=== PATIENT | female | born 1950 | race Caucasian/White ===

== ENCOUNTER → 2022-08-14 15:53 | Outpatient (CLI) | payer MEDICARE, MEDICAID, SELFPAY ==
[2022-08-14 17:10] LABS: COVID19 -Nasal RAPID Negative (Negative)
== END ==
PROVIDERS: PCP Physician Assistant; Referring Provider Orthopaedic Surgery; Visit Provider Orthopaedic Surgery
DX: Z20.822 Contact with and (suspected) exposure to COVID-19 (principal)
CPT/HCPCS: 87635; C9803

== ENCOUNTER 2022-08-16 07:36 | Inpatient (IN) | payer MEDICARE, MEDICAID, SELFPAY ==
[2022-08-07 13:54] VITALS: BMI 24.6
[2022-08-15] VITALS (11 sets, daily range): BP systolic 92–153; BP diastolic 40–80; PULSE 65–79; RESP 14–25; TEMP 36.1–37.1; O2SAT 94–99; BMI 24.6
--- NOTE | 2022-08-15 06:00 | DI.RAD.S_ITS ---
PROCEDURE: XR KNEE RT 1TO2V INDICATIONS: TKA TECHNIQUE: 2 view(s) of the knee acquired. [facility] 4+ VIEWS RIGHT, 04/17/2022, 15:41. FINDINGS: Bones: Patient is status post knee joint arthroplasty. Hardware components are in expected positions. Visualized bony structures are intact. Soft tissues: Overlying postoperative changes are noted. IMPRESSION: Status post interval right total knee arthroplasty without evidence for gross hardware complication. Dictated by: Inocencio Jeronimo M.D. on 08/16/2022 at 11:02 Approved by: Inocencio Jeronimo M.D. on 08/16/2022 at 11:03
[2022-08-15] MEDS: LACTATED RINGERS 1,000 ML 42 ML IV (13:55)
[2022-08-15] MEDS: ACETAMINOPHEN 325 MG TABLET 975 MG PO (13:56)
--- NOTE | 2022-08-15 14:25 | PM.PREOP ---
Pre-operative Note COVID-19 COVID-19 status: Negative Result date/Date tested (Pos, Neg/Pending): 08/14/22 Interval Note History & Physical reviewed/Exam performed by Physician: Yes Changes to H&P: No
--- NOTE | 2022-08-15 14:52 | SUR.OPER ---
Supine on padded OR bed. Pillow under head, arms secured on padded armboards <90 degree abduction. Safety belt across torso. Non-operative leg secured with tape over blanket over lower leg. Operative leg secured in [employer] positioner. Foam padded brace at thigh of operative leg.
[2022-08-15] MEDS: CEFAZOLIN 2 GM/100 ML PREMIX 100 ML IV ×2 (15:30→23:36)
[2022-08-15] MEDS: TRANEXAMIC ACID 1,000 MG VIAL 2000 MG INJ ×2 (15:40→16:30)
[2022-08-15] MEDS: MORPHINE 4 MG/ML INJ INJ (15:46)
[2022-08-15] MEDS: BUPIVACAINE 0.5% W/ EPI (PF) 30 ML VIAL INJ (15:46)
[2022-08-15] MEDS: BUPIVACAINE LIPOSOME 266 MG/20 ML VIAL INJ (15:47)
--- NOTE | 2022-08-15 17:00 | P.OP_ITS ---
Operative Date/Time/Diagnoses Date of procedure: 08/15/22 Time of procedure: 17:00 Pre-op diagnosis: Right knee osteoarthritis Post-op diagnosis: same Procedure & Clinicians Procedure: Right total knee replacement Same procedure as scheduled: Yes Indications: The patient has had progressively worsening right knee pain with radiographic changes consistent with arthritis. Non-operative management has failed and the patient has requested total knee replacement. The risks, benefits and alternatives to surgery were discussed with the patient prior to proceeding. Risks discussed included, but were not limited to, failure to relieve pain, stiffness, infection, nerve damage, deep venous thrombosis, pulmonary embolism, stroke, coma, heart attack, permanent paralysis and , as well as the potential need for eventual revision of the prosthetic. Surgeon: Wiley Pavon Lawn Mower Operator: Opal Bose Yes if Unassisted: No Anesthesia Type: General, Spinal and Local Operative Notes Findings: Severe tricompartmental osteoarthritis, worst on the lateral side. Residual fracture line from prior tibial plateau fracture evident in the lateral compartment although well healed. Significant osteoporosis in all bones of the knee. Closure Type: primary Specimen(s): none sent Prosthetic devices, grafts, tissues, transplants, or devices: Implants used in this procedure were manufactured by the [employer] and [employer] and included the BCS II Journey total knee replacement with a size 4 right cobalt chromium femur, a size 4 right non porous tibial base plate, a 9 mm cross-linked polyethylene tibial insert and a 35 mm oval Vanessa II patella. Applied: implant(s) Estimated Blood Loss (mL): 25 Blood products transfused: none Tourniquet time (min): 52 Procedure in detail: The patient was seen in the pre-operative area, where the patient identified the right knee as the operative site and this was marked with my initials. The patient received pre-operative antibiotics, and was taken to the operating room and placed on the operative table in the supine position. After satisfactory anesthesia, a [employer] out was performed. The right leg was encircled with a tourniquet about the proximal thigh, and the leg was prepared from the toes to the tourniquet with ChloroPrep in the usual fashion and draped through sterile drapes. The leg was elevated and exsanguinated with Eschmark bandage and the tourniquet inflated to 250 mmHg pressure. The knee was approached through an approximately 18 cm incision centered over the patella and carried into the knee through a medial parapatellar arthrotomy. The anterior osteophytes and soft tissues were removed. The rotational landmarks of Knott's line and the transepicondylar axis were marked on the femur with electrocautery, and intramedullary guide holes for the femur and tibia were created. The distal femoral cut was made in 6 degrees of valgus using the intramedullary guide at the primary cut setting. The proximal tibial cut was then made using the intramedullary guide, taking 7 mm of bone off the less involved medial side. The extension gap was checked and the rotation of the femoral component confirmed with the gap balancing system. The flexion gap appeared appropriate however we could not attain full extension so an additional 2 mm was taken from the femur. The anterior, posterior and chamfer cuts were then made. The posterior osteophytes and soft tissues were then removed. The posterior capsule was injected with part of a mixture of 60 ml 0.25% Marcaine mixed with 20 ml Exparel and 4 mg of morphine for post-operative pain control. The remainder of this mixture was injected into the capsule and subcutaneous tissues during cement curing. The tibia was prepared with the rotation set by an extra medullary guide. Trial tibial and femoral components were then placed and the intercondylar notch cut through the femoral trial. Range of motion was 0-145 degrees, with good stability throughout the range. The patella was then cut to accommodate the patellar prosthetic. There was no need for a lateral release. The trials were then removed, and the femoral hole plugged with a bone plug. The bone was prepared with pulsatile lavage, and dried with a sponge. Cement was applied and the final prosthetics placed. Excess cement was removed during and a fter cement curing. After confirming there was no extruded cement posteriorly, the final tibial insert was placed. The knee was copiously irrigated and the tourniquet deflated. Hemostasis was obtained. The capsule was closed with interrupted # 2 polyester suture. The subcutaneous layer was closed with 3-0 Vicryl, and the skin with a running 3-0 V-Lock suture and Dermabond. An Aquacel Ag dressing was applied and the patient was taken to recovery having tolerated the procedure well. The services of a skilled assistant nurse manager were necessary during this procedure to provide exposure, positioning and retraction to protect vital structures. Without the services of Ms. Zamudio the procedure could not have been completed in a timely and safe manner. Complications: none Post-operative Condition: stable Disposition: PACU Plan for aftercare: The patient will be maintained on a standard total knee replacement protocol with weight bearing as tolerated. The patient will receive aspirin and sequential compression devices for DVT prophylaxis. The patient will be discharged home when safe for the home environment.
[2022-08-15] MEDS: LACTATED RINGERS 1,000 ML 100 ML IV (18:10)
[2022-08-15] MEDS: ACETAMINOPHEN 325 MG TABLET 650 MG PO ×2 (18:23→23:36)
[2022-08-15] MEDS: OXYCODONE IR 10 MG TABLET PO ×2 (20:15→23:36)
[2022-08-15] MEDS: LORATADINE 10 MG TABLET PO (20:16)
[2022-08-15] MEDS: DOCUSATE 100 MG CAPSULE PO (20:16)
[2022-08-15] MEDS: HYDROMORPHONE 0.5 MG INJ 0.2 MG IV (21:10)
[2022-08-15] MEDS: HYDROMORPHONE 2 MG TABLET PO (22:14)
[2022-08-15] MEDS: ONDANSETRON 4 MG ODT PO (22:14)
[2022-08-16] VITALS: BP 144/69; PULSE 68; RESP 22; TEMP 36.3; O2SAT 99
[2022-08-16] MEDS: HYDROMORPHONE 0.5 MG INJ 0.2 MG IV ×3 (00:13→03:50)
[2022-08-16 04:00] VITALS: BP 146/76; PULSE 69; RESP 17; TEMP 35.9; O2SAT 96
[2022-08-16 04:50] LABS: Hematocrit 26.4 % (36-46); Hemoglobin 9.1 g/dL (12.0-16.0)
[2022-08-16] MEDS: LACTATED RINGERS 1,000 ML 100 ML IV (05:05)
[2022-08-16] MEDS: ACETAMINOPHEN 325 MG TABLET 650 MG PO ×3 (05:08→18:06)
[2022-08-16] MEDS: OXYCODONE IR 10 MG TABLET PO ×2 (05:08→20:48)
[2022-08-16] MEDS: CEFAZOLIN 2 GM/100 ML PREMIX 100 ML IV (07:08)
--- NOTE | 2022-08-16 07:40 | PM.PNPO.1 ---
Subjective Subjective Date Patient Seen: 08/16/22 Time Patient Seen: 07:40 Interval history: The patient reports poor pain control. The nurses report she has not had pain control despite oxycodone and hydromorphone. She has also been very anxious. Exam Vital Signs (past 8 hours): - 08/16/22 00:00 08/16/22 04:00 Temperature 97.3 F L 96.6 F L Pulse Rate 68 69 Respiratory Rate 22 17 Blood Pressure 144/69 H 146/76 H Pulse Oximetry 99 96 Oxygen Delivery Method Room Air Oxygen Flow Rate 0 Narrative Exam Narrative: The patient is examined while lying in her hospital bed. She is picking at her bed sheets. She is oriented to time place and condition. Right knee wound is dressed with no drainage on the bandage. Calf is soft. Light touch and motion are intact in the right lower extremity. Objective Labs Result Diagrams: 08/16/22 04:02 Labs: Laboratory Results - last 24 hr 08/16/22 04:02 Hgb 9.1 L Hct 26.4 L PFSH Medical History (Updated 08/09/22 @ 13:35 by Vangie Villarreal RN) Bilateral cataracts Chronic systolic heart failure Depression History of cardioversion (06/09/19) HTN (hypertension) Junctional rhythm Junctional tachycardia Moderate tricuspid regurgitation Osteoarthritis Paroxysmal A-fib (2018) PFO (patent foramen ovale) Rheumatoid arthritis Seasonal allergies Severe mitral regurgitation Tibial plateau fracture, right (06/2020) Tinnitus Surgical History (Updated 08/09/22 @ 13:15 by Vangie Villarreal RN) History of cardiac cath (07/03/19) History of surgical procedure (08/05/19) Hx of arthroscopy of right knee Hx of section Hx of sinus surgery Social History household members: none Smoking Status: Former smoker alcohol intake: current Assessment & Plan Post-op Postoperative Procedures: Procedures Operation Date: 08/15/22 15:00 Actual Procedure Side Surgeon p Total Knee Arthroplasty Right Wiley Pavon MD Postoperative day: 1 Postoperative status: marginal pain control, anemia and other (Anxiety) Postoperative status narrative: The patient is medically stable with a moderate post hemorrhagic anemia postop day 1 status post right total knee replacement. She has poor pain control and a high anxiety level. She has not been able to ambulate yet. Postoperative plan: routine post-op care, ambulate and other (Add higher dose hydromorphone and Ativan to pain regimen.) Postoperative plan narrative: We will admit her to the hospital as an inpatient as she is clearly not going to be capable of going home today. We will have her work with physical therapy. I will give her as needed Ativan for anxiety. We will give her a higher dose IV hydromorphone for pain control as a rescue medication. We will discharge her after she is made enough progress with therapy to be safe to go home. If she has not made enough progress in 3 days she will need to be transferred to retirement. Time Spent With Patient Time with patient: less than 15 minutes
[2022-08-16] MEDS: HYDROMORPHONE 0.5 MG INJ IV ×3 (08:22→20:54)
[2022-08-16 08:25] VITALS: BP 136/97
[2022-08-16] MEDS: buPROPion SR 150 MG TAB 450 MG PO (08:25)
[2022-08-16] MEDS: CITALOPRAM 10 MG TABLET 40 MG PO (08:25)
[2022-08-16] MEDS: LORazepam 0.5 MG TABLET PO ×2 (08:25→20:48)
[2022-08-16] MEDS: LOSARTAN 25 MG TABLET PO (08:25)
[2022-08-16 08:26] VITALS: BP 136/67
[2022-08-16] MEDS: DOCUSATE 100 MG CAPSULE PO ×2 (08:26→20:48)
[2022-08-16] MEDS: carvediloL 12.5 MG TABLET PO (08:26)
[2022-08-16] MEDS: AMIODARONE 200 MG TABLET 100 MG PO (08:26)
[2022-08-16] MEDS: APIXABAN 5 MG TABLET PO ×2 (08:26→20:48)
[2022-08-16] MEDS: ASPIRIN EC 81 MG TABLET PO (08:26)
[2022-08-16 08:33] VITALS: BP 136/67; PULSE 68; RESP 18; TEMP 35.7; O2SAT 94
--- NOTE | 2022-08-16 10:35 | PT.IIE ---
Current Diagnoses Unilateral primary osteoarthritis, right knee (08/15/22) Surgery Performed Operation Date: 08/15/22 15:00 Actual Procedures p Total Knee Arthroplasty(Right) - Wiley Pavon MD Surgical History (Last Updated 08/09/22 @ 13:15 by Vangie Villarreal, RN) History of cardiac cath (07/03/19) History of surgical procedure (08/05/19) Hx of arthroscopy of right knee Hx of section Hx of sinus surgery Medical History (Last Updated 08/09/22 @ 13:35 by Vangie Villarreal RN) Bilateral cataracts Chronic systolic heart failure Depression History of cardioversion (06/09/19) HTN (hypertension) Junctional rhythm Junctional tachycardia Moderate tricuspid regurgitation Osteoarthritis Paroxysmal A-fib (2018) PFO (patent foramen ovale) Rheumatoid arthritis Seasonal allergies Severe mitral regurgitation Tibial plateau fracture, right (06/2020) Tinnitus Physical Therapy Inpatient Evaluation/Re-Eval M1 PT/OT-IP Prior Functional Status Start: 08/16/22 13:21 Freq: NEEDED Status: Active Protocol: Document 08/16/22 10:35 AB (Rec: 08/16/22 13:35 AB [email or web address]) Medical Review Prior Functional Status Medical History Reviewed Yes Communication able to answer question but with confusion and staggered speech Mobility and Gait pt stated that she is independent with all mobilities and ambulation without AD indoors but occasionally uses a SPC; uses a 4WW for outdoor mobility Social History Household Members none Living Arrangements Apartment/Condo Number of Floors (Floors) One Floor Number of Stairs To Enter/Railing? elevated to get to her 2nd level apartment Home Environment Standard Height Toilet,Tub/ Shower Home Equipment Front Wheel Walker,Four Wheel Walker,Straight Cane,Shower Seat with Backrest,Hand Held Shower,Grab Bars Near Toilet, Grab Bars In Shower M2 PT-IP Current Condition Start: 08/16/22 13:21 Freq: NEEDED Status: Active Protocol: Document 08/16/22 10:35 AB (Rec: 08/16/22 13:35 AB [email or web address]) Physical Therapy Current Condition Current Condition Evaluation Date 08/16/22 Treatment Diagnosis s/p R TKA; difficulty in walking Onset Date 08/15/22 M3 PT-IP Subjective Start: 08/16/22 13:21 Freq: NEEDED Status: Active Protocol: Document 08/16/22 10:35 AB (Rec: 08/16/22 13:35 AB [email or web address]) Subjective Physical Therapy Visit Type Type Initial Evaluation Visit Start Time 10:35 Visit Stop Time 11:20 Total Visit Minutes 45 Number of LOADING MACHINE OPERATOR Visits 0 Physical Therapy Visit Comments Patient Comments agreeable to do PT Therapy Pain Assessment Pain When Pain Assessed At Rest Pain Present Pain Present Pain Reported Location Right Knee Intensity 7 Scale Used Numeric (0 - 10) Pain Management Techniques Apply Cold,Elevation, Modification of Treatment,Re- positioning,Timing of Activity with Medications M4 PT-IP Mobility and Gait Start: 08/16/22 13:21 Freq: NEEDED Status: Active Protocol: Document 08/16/22 10:35 AB (Rec: 08/16/22 13:35 AB [email or web address]) PT-Bed Mobility Assessment Supine to Sit Supine to Sit Maximum Assistance PT-Transfer Assessment Sit to and From Stand Sit to and from Stand Maximum Assistance,2 Person Assistance,Use of Upper Extremities Equipment Transfer Assistive Device Gait Belt,Front Wheeled Walker Orthotic/Prosthetic Devices or Brace: No Transfers Transfer Destination Chair Transfer Technique Stand Step Pivot Transfer Ability Level of Assist Maximum Assistance,2 Person Assistance,Use of Upper Extremities Comments Mobility Comments c/o increase R knee pain. AAROM completed on R knee prior to mobility. BP: 116/78 . completed supine to sit max A and max cues. able to sit on EOB CGA. completed sit to stand max A x 2 and max cues. pt with increase R knee flexion and tends not to put weight on RLE. cued for WBAT and to have foot flat on floor during standing. completed step transfer to chair max A x 2 and max cues. c/o increase knee pain and unable to do further activity. agreed to sit on the chair. c/o lightheadedness. BP: 106/68. positioned on the chair. call light and table placed within reach. Gait Assessment Comments Gait Comments unable at this time PT-Balance Assessment Sitting Balance and Reactions Static Sitting Balance Ability Good Dynamic Sitting Balance Ability Fair Standing Balance and Reactions Static Standing Balance Ability Poor Dynamic Standing Balance Ability Poor Device Used FWW M5 PT-IP Objective Assessments Start: 08/16/22 13:21 Freq: NEEDED Status: Active Protocol: Document 08/16/22 10:35 AB (Rec: 08/16/22 13:35 AB [email or web address]) Orientation Orientation/Cognition Level of Alertness Confusional State Orientation Name Language Function Ability Hard of Hearing Safety Awareness Decreased Safety Awareness Memory Description Short Term Impaired Gross Range of Motion Lower Extremity ROM Assessment Right Impaired Impairments R knee flexion: ~ 70 de R knee extnesion: ~ 30 deg less to 0 Strength Lower Extremity Strength Assessment Right Impaired Hip 3+/5 Knee 3-/5 Sensation Assessment Sensation Gross Sensation WNL Muscle Tone Muscle Tone WNL Yes M6 PT-IP Treatment Start: 08/16/22 13:21 Freq: NEEDED Status: Active Protocol: Document 08/16/22 10:35 AB (Rec: 08/16/22 13:35 AB [email or web address]) Physical Therapy Treatment Exercises Exercises Heel Slides Education Education Provided Precautions,Weight Bearing Status,Post-Op Packet,Safety M7 PT-IP Assessment and Plan Start: 08/16/22 13:21 Freq: NEEDED Status: Active Protocol: Document 08/16/22 10:35 AB (Rec: 08/16/22 13:35 AB [email or web address]) PT Summary Assessment and Plan Potential Rehabilitation Potential Fair Status of Condition at Evaluation Evolving Summary Impairments Pain,ROM,Strength,Balance, Coordination,Sensation,Tone, Cognition,Bed Mobility, Transfers,Gait,Activity Tolerance Assessment Summary pt requiring max A x 2 for transfers using FWW and unable to ambulate at this time. Pt with c/o increase pain on R knee. Pt will need 24/7 assist at this time and will require SNF rehab to improve strength and mobility. Goals Bed Mobility Goal Minimal Assistance Transfer Goal Minimal Assistance,Front Wheeled Walker Gait Goal Minimal Assistance,Front Wheel Walker Gait Distance 25 Other Goals improve bed mobility, transfers, ambulation 100 ft SBA using FWW Days to Meet Goals 10 Frequency of Treatment Frequency Of Treatment Twice a Day Treatment Plan Physical Therapy Treatment Plan Bed Mobility Training,Transfer Training,Gait Training, Therapeutic Exercise,Balance Retraining,Post Op Education, Discharge Planning,Hot or Cold Pack,Neuromuscular Re-ed, Coordination Retraining,Manual Therapy Weight Bearing Status Weight Bearing Status Weight Bear as Tolerated Allowed Weight Bearing Amount (enter % RLE WBAT or #) (%) Recommendations To Nursing Amount of Assist Needed 2 Person Assist Discharge Recommendations PT Discharge Recommendations SNF Rehab Transportation Needs at Discharge Wheelchair/Cabulance
[2022-08-16] MEDS: HYDROMORPHONE 2 MG TABLET PO ×2 (11:23→18:05)
--- NOTE | 2022-08-16 13:57 | CM.DANOTE ---
Addendum entered by TARUN Fritz 08/16/22 15:06: ADD: Per UR RN, able to switch pt to Inpt Status as of today 08/16. Call from [facility] admissions stating they can accept pt when ready for d/c likely. [facility] still reviewing. BF Original Note: Patient is a 72 yo female who was admitted on 08/15/22 for RTKA. Pt has [facility] and [facility] for insurance and her PCP is Catrachita Barahona. EMR was reviewed. Per Ortho, pt having significant pain management issues and not stable for d/c yet and recommending SNF and placed Inpt Order due to pain and dilaudid needs. TRAVIS inquired with UR RN if pt might meet criteria for change to Inpt Status and UR will review. PT, recommending SNF as pt 2PA due to pain and guarding of her knee. OT ordered and pending. SW met bedside with pt and Dtr/DPOA Mikala and they confirm pt lives alone in an apt in [facility] and is independent at baseline and sometimes uses a cane for ambulation. Pt drives but does not like to drive long distances. Pt used to live with Dttere Mikala in [place] and had a fall a couple years ago and broke her leg in 3 places and needed surgery and discharged to SNF [facility] in [place] and then went home with Kellie POMPA. Pt since then has moved into her own apt in [facility] and both in agreement that SNF needed at d/c. TRAVIS discussed the barriers of SDC/OBS status for a planned knee surgery and attempts to see if pt will meet Inpt criteria under Medicare guidelines. TRAVIS dicussed the typical Medicare requirement of 3 midnights as Inpt Status for coverage of SNF but potential for COVID waiver if SNF facilities are still accepting. TRAVIS provided the SNF CHoice list via Ipad and printed copy and preference is any SNF ([facility] or [facility]) that could accept. TRAVIS called Tracey with new referral and Left msg with [facility] and JAQUAN Shah kindly faxed referral to [facility], [facility] for review. PASRR completed. Plan: TRAVIS to follow closely with above SNFs in the morning to determine if any can accept and with UR RN to determine OBS vs Inpt Status towards determining coverage for SNF. TARUN Fritz Discharge Planning/Care Management Advanced directive, confirm from FAMILY Start: 08/15/22 18:20 Freq: Q24H Status: Active Protocol: Document 08/15/22 18:20 CM (Rec: 08/15/22 18:20 CM [id number]) Advance Directive, confirm on record Time 18:20 Person contacted Pt Copy received No CM Discharge Assessment Start: 08/16/22 13:54 Freq: Status: Active Protocol: Document 08/16/22 13:55 BF (Rec: 08/16/22 13:57 BF [id number]) Discharge Planning Assessment Assigned Hobber TARUN Joel DPOA/Assigned Designee Name Dtr Mikala Contact Information [phone] Advance Directives? Yes Advance Directives on File No History Provided By Patient,Family Member,Medical Record Has Patient been admitted in last 30 No days? Prior Living Arrangements Apartment/Condo Household Members none Type of transporation used prior to Drives own vehicle admit Independent with ADL's Yes Is patient alert and oriented? Yes Needs Assistance With Home Chores / Shopping Caregiver for Another No DME Already Rented / Owned FWW / Walker,Cane Patient/Family Preference Assisted Facility Barriers to Discharge Yes Comment Might be OBS status Discharge Plan Assisted Facility Transportation Arrangement Dtr if home, facility van if SNF Referrals Initiated Assisted If patient plan is SNF: Has PASSR been Yes completed? Medicare Choice List Provided Yes SNF/HH Preference Any that can accept or take COVID waiver if pt can't be switched to Inpt Status Has Agency SNF been contacted Yes Whiteboard Updated in Patient Room with Yes name and ext. # of Hobber Review Status In Process Please Provide Date Initial DC 08/16/22 Assessment Was Performed Next Review Type Continued Stay Review Pre-Anesthesia Assessment Start: 08/07/22 13:54 Freq: Status: Active Protocol: Document 08/07/22 13:54 CAB (Rec: 08/07/22 14:22 CAB [id number]) Pre-Anesthesia Assessment Patient Information Reviewed Via Phone Assessment Assessment Completed With Patient Comment Labs-needs to do, older outside ECG scanned, COVID screen-needs to schedule Primary Care Provider Taina Barahona Seen Specialist in Last 12 Months Yes Specialist Seen Preparation Operator,Orthopedist Primary Language Pashto Towel Hemmer Required No Height 165.1 cm Weight 67.132 kg Body Mass Index (BMI) 24.6 Hearing Ability Normal Visual Assist Magnifying Glass Dentition Type Teeth, Natural Present Barriers to Learning Memory Comment Short term memory issues Hx Anesthesia Reactions No Hx Family Anesthesia Reaction No Hx Malignant Hyperthermia No Hx Blood Transfusions No Anesthesia Review Requested No alcohol intake current alcohol intake frequency a few times a week Smoking Status Former smoker how long ago did patient quit smoking Quit 47 years ago Substance Use Type does not use Pain Present Pain Reported Musculoskeletal Symptoms Abnormal Gait,Difficulty Walking,Joint Pain History of Falling (Recent or History of No ) Patient is completely paralyzed or No completely immobile Prosthesis or Orthotic Device Cane,Front Wheel Walker Mental Status Oriented to own ability Is patient on oxygen? No Does patient have MIRANDA/SOB Yes: MIRANDA Hx Sleep Apnea No Currently Taking a Beta Wili Yes: Cardvedilol Can You Climb a Flight of Stairs Without No SOB Hx Chest Pain No Hx SOB Yes: MIRANDA Hx Syncope or Dizziness No Anti-Coagulant Therapy Yes: Eliquis-stop [address] Roth Has a Preparation Operator Yes: Last visit 08/02/[address] Justice Cardiac Testing No Hx Pacemaker/ICD No Pacemaker Rep Required? No Cardiac Clearance Received Yes Comment Cardiac records scanned Diet Type At Home Regular Dysphagia No Gastrointestinal Symptoms Constipation Bladder Pattern Urgency Urinary Catheter Present No Hx Urinary Self Catheterization No Diabetes No Patient No Lactating No Hx Drug Resistant Organism No Presence of External or Internal Medical Yes: Mitraclip(cardiac) Devices Have you had any close contact with No someone diagnosed with COVID-19? Received a COVID vaccine? Yes Received all doses? No Marital Status Lives With none Current Living Arrangements Apartment/[place] [employer] Support System Child/Children Does the Patient Have Assistance After No: Pt has no available help Surgery at home until mid august, daughter out of town Patient Discharge Plan Description Assisted Facility/Rehab Comment Advised pt to review discharge options with surgeon's office due to no help Feels Safe in Current Environment Yes Been Physically Hurt or Threatened By a No Person in Current Environment Do you have thoughts of harming yourself None or others? Are you currently considering suicide? No Do you have a plan to hurt yourself or No Plan others? Do You Have Any Spiritual Beliefs That No May Affect Your HC Choices? Do You Have Any Cultural Practices That No May Affect Your HC Choices? Comment Jimmy Who Can We Speak to About Patient's Care Family,friends Identifying Code for Release of Patient Declines to issue Information Health Care Proxy/Next of Kin Mikala (daughter) Health Care Proxy Emergency Contact Name Mikala (daughter) Emergency Contact Advance Directives? Yes: Still working on Power of Inspecting Machine Adjuster No PAC Instructions Do not shave/clip surgical site,Durable medical equipment ,Medications to take/avoid, Nasal antibiotic,No ETOH/ petroleum product on skin DOS, NPO,Pre-surgical wash,Sensory aids,Sturdy shoes/comfortable clothes,Do not bring valuables and remove jewelry
--- NOTE | 2022-08-16 16:51 | PT.IPTN ---
Current Diagnoses Unilateral primary osteoarthritis, right knee (08/15/22) Surgery Performed Operation Date: 08/15/22 15:00 Actual Procedures p Total Knee Arthroplasty(Right) - Wiley Pavon MD Physical Therapy Treatment Note M2 PT-IP Current Condition Start: 08/16/22 13:21 Freq: NEEDED Status: Active Protocol: Document 08/16/22 10:35 AB (Rec: 08/16/22 13:35 AB [id number]) Physical Therapy Current Condition Current Condition Evaluation Date 08/16/22 Treatment Diagnosis s/p R TKA; difficulty in walking Onset Date 08/15/22 M3 PT-IP Subjective Start: 08/16/22 13:21 Freq: NEEDED Status: Active Protocol: Document 08/16/22 16:40 SAK (Rec: 08/16/22 16:51 SAK [id number]) Subjective Physical Therapy Visit Type Type Treatment Note Visit Start Time 16:00 Visit Stop Time 16:40 Total Visit Minutes 40 Number of BUSINESS INTEGRATION MANAGER Visits 0 Physical Therapy Visit Comments Patient Comments Patient reporting pain 7/10 but willing to try with PT Therapy Pain Assessment Location Right Knee Intensity 7 Scale Used Numeric (0 - 10) Description Aching,Tender,With Movement Pain Management Techniques Apply Cold,Elevation, Modification of Treatment,Re- positioning,Timing of Activity with Medications M4 PT-IP Mobility and Gait Start: 08/16/22 13:21 Freq: NEEDED Status: Active Protocol: Document 08/16/22 16:40 SAK (Rec: 08/16/22 16:51 SAK [id number]) PT-Bed Mobility Assessment Supine to Sit Supine to Sit Moderate Assistance PT-Transfer Assessment Sit to and From Stand Sit to and from Stand Maximum Assistance,1 Person Assistance,Use of Upper Extremities Equipment Transfer Assistive Device Gait Belt,Front Wheeled Walker Orthotic/Prosthetic Devices or Brace: No Transfers Transfer Destination Chair Transfer Technique Stand Step Pivot Transfer Ability Level of Assist Maximum Assistance,1 Person Assistance,Use of Upper Extremities Comments Mobility Comments Patient able to put right foot flat on floor for transfer, responded well to cues to push through arms when lifting left foot for step. Gait Assessment Gait Gait Assistance Required: Maximum Assistance Distance (Feet) 2 Able to Maintain Weight Bearing Status Yes During Gait Assistive Devices Assistive Device Front Wheeled Walker Gait Deviations General Gait Pattern Festinating Factors Limiting Gait Function Factors Limiting Gait Function Decreased Activity Tolerance, Decreased Strength, Incoordination,Pain,Poor Safety Awareness PT-Balance Assessment Sitting Balance and Reactions Static Sitting Balance Ability Good Dynamic Sitting Balance Ability Fair Standing Balance and Reactions Static Standing Balance Ability Poor Dynamic Standing Balance Ability Poor Device Used FWW Comments Other Balance Tests/Deviations/Treatment patient had tendency to lose : balance backward, anxious with standing, gait, and transfers M5 PT-IP Objective Assessments Start: 08/16/22 13:21 Freq: NEEDED Status: Active Protocol: Document 08/16/22 16:40 [facility] (Rec: 08/16/22 16:51 [facility] [id number]) Gross Range of Motion Lower Extremity ROM Assessment Right Impaired Impairments R knee flexion: ~ 80 de R knee extnesion: ~ 30 deg less to 0 M6 PT-IP Treatment Start: 08/16/22 13:21 Freq: NEEDED Status: Active Protocol: Document 08/16/22 16:40 [facility] (Rec: 08/16/22 16:51 [facility] [id number]) Physical Therapy Treatment Other Treatments Other Treatment Performed TKA protocol x 5 reps each; mod assist for SAQ, min assist SLR M7 PT-IP Assessment and Plan Start: 08/16/22 13:21 Freq: NEEDED Status: Active Protocol: Document 08/16/22 16:40 [facility] (Rec: 08/16/22 16:51 [facility] [id number]) PT Summary Assessment and Plan Potential Rehabilitation Potential Fair Status of Condition at Evaluation Evolving Summary Impairments Pain,ROM,Strength,Balance, Coordination,Sensation,Tone, Cognition,Bed Mobility, Transfers,Gait,Activity Tolerance Assessment Summary pt requiring max A x 1 for transfers using FWW and able to ambulate only 2 ft at this time. Decreased assist needed this afternoon but with tremulus movements and high anxiety level regarding mobility. Pt will need 24/7 assist at this time and will require SNF rehab to improve strength and mobility skills Goals Bed Mobility Goal Minimal Assistance Transfer Goal Minimal Assistance,Front Wheeled Walker Gait Goal Minimal Assistance,Front Wheel Walker Gait Distance 25 Other Goals improve bed mobility, transfers, ambulation 100 ft SBA using FWW Days to Meet Goals 10 Frequency of Treatment Frequency Of Treatment Twice a Day Treatment Plan Physical Therapy Treatment Plan Bed Mobility Training,Transfer Training,Gait Training, Therapeutic Exercise,Balance Retraining,Post Op Education, Discharge Planning,Hot or Cold Pack,Neuromuscular Re-ed, Coordination Retraining,Manual Therapy Weight Bearing Status Weight Bearing Status Weight Bear as Tolerated Allowed Weight Bearing Amount (enter % RLE WBAT or #) (%) Recommendations To Nursing Amount of Assist Needed 1 Person Assist,2 Person Assist Discharge Recommendations PT Discharge Recommendations SNF Rehab
[2022-08-16 20:00] VITALS: BP 123/44; PULSE 66; RESP 20; TEMP 36; O2SAT 94
[2022-08-17 04:00] VITALS: BP 144/56; PULSE 71; RESP 17; TEMP 36.7; O2SAT 94
[2022-08-17] MEDS: OXYCODONE IR 10 MG TABLET PO ×2 (04:33→11:54)
[2022-08-17] MEDS: HYDROMORPHONE 0.5 MG INJ IV ×2 (06:02→06:52)
[2022-08-17] MEDS: ACETAMINOPHEN 325 MG TABLET 650 MG PO ×2 (06:02→10:03)
--- NOTE | 2022-08-17 07:05 | P.DS_ITS ---
History of Present Illness History of Present Illness Date Patient Seen: 08/17/22 Time Patient Seen: 07:05 Chief complaint: OPB Narrative: Operative Date/Time/Diagnoses Date of procedure: 08/15/22 Time of procedure: 17:00 Pre-op diagnosis: Right knee osteoarthritis Post-op diagnosis: same Procedure & Clinicians Procedure: Right total knee replacement Same procedure as scheduled: Yes Indications: The patient has had progressively worsening right knee pain with radiographic changes consistent with arthritis. Non-operative management has failed and the patient has requested total knee replacement. The risks, benefits and alternatives to surgery were discussed with the patient prior to proceeding. Risks discussed included, but were not limited to, failure to relieve pain, stiffness, infection, nerve damage, deep venous thrombosis, pulmonary embolism, stroke, coma, heart attack, permanent paralysis and , as well as the potential need for eventual revision of the prosthetic. Surgeon: Wiley Pavon Call Center Operator: Opal Zamudio Click Yes if Unassisted: No Anesthesia Type: General, Spinal and Local Operative Notes Findings: Severe tricompartmental osteoarthritis, worst on the lateral side.? Residual fracture line from prior tibial plateau fracture evident in the lateral compartment although well healed.? Significant osteoporosis in all bones of the knee. Closure Type: primary Specimen(s): none sent Prosthetic devices, grafts, tissues, transplants, or devices: Implants used in this procedure were manufactured by the [employer] and included the BCS II Journey total knee replacement with a size 4 right cobalt chromium femur, a size 4 right non porous tibial base plate, a 9 mm cross-linked polyethylene tibial insert and a 35 mm oval Vanessa II patella. Applied: implant(s) Estimated Blood Loss (mL): 25 Blood products transfused: none Tourniquet time (min): 52 Discharge Providers Provider Date of admission: 08/16/22 07:36 Discharge Date: 08/17/22 Primary care physician: Taina Barahona PA-C Consults: 08/15/22 17:57 Consult to Discharge Planning Routine Comment: Consult to Physical Therapy Evaluate & Treat Comment: Physician Instructions: postop TKA protocol 08/16/22 13:53 Consult to Occupational Therapy Evaluate & Treat Comment: Physician Instructions: Evaluate and treat Discharge provider: Opal Zamudio PA-C Summary Hospital Course Discharge Diagnosis: Right knee osteoarthritis, s/p right total knee arthroplasty Hospital Course: Ms Hyatt's hospital course was remarkable for poor pain control and difficulty progressing with PT. She was evaluated by PT throughout her stay and felt to be best-suited for further rehabilitation at a SNF prior to going home. She was eating and voiding without difficulty. Exam Vital Signs (past 8 hours): - 08/17/22 04:00 Temperature 98.0 F Pulse Rate 71 Respiratory Rate 17 Blood Pressure 144/56 H Pulse Oximetry 94 Oxygen Delivery Method Room Air Oxygen Flow Rate 0 Narrative Exam Narrative: 4/5 strength in hip flexors, quadriceps, hamstrings; 5/5 DF, PF, EHL on right. Sensation to light touch intact throughout RLE. Calf soft, compressible, nontender and without palpable cords or masses. Objective Labs Result Diagrams: 08/16/22 04:02 [facility] Medical History (Updated 08/09/22 @ 13:35 by Vangie Villarreal RN) Bilateral cataracts Chronic systolic heart failure Depression History of cardioversion (06/09/19) HTN (hypertension) Junctional rhythm Junctional tachycardia Moderate tricuspid regurgitation Osteoarthritis Paroxysmal A-fib (2018) PFO (patent foramen ovale) Rheumatoid arthritis Seasonal allergies Severe mitral regurgitation Tibial plateau fracture, right (06/2020) Tinnitus Surgical History (Updated 08/17/22 @ 07:13 by Opal Zamudio PA-C) History of cardiac cath (07/03/19) History of surgical procedure (08/05/19) Hx of arthroscopy of right knee Hx of section Hx of sinus surgery Social History household members: none Smoking Status: Former smoker alcohol intake: current Discharge Assessment & Plan Assessment and Plan Assessment: Right knee osteoarthritis, s/p right total knee arthroplasty Acute anemia d/t expected surgical blood loss Plan of Treatment: D/c to SNF. Resume preop Eliquis and add ASA 81 mg daily for postop VTE prophylaxis. Multimodal pain control. F/u in office in 2 weeks. Discharge Plan Discharge Plan Patient Disposition: SNF Discharge orders & Medications Prescriptions: New hydromorphone 2 mg Tablet 2 mg PO Q4-6H PRN (Reason: Pain, Severe (7-10)) Qty: 20 0RF lorazepam 0.5 mg Tablet 0.5 mg PO Q6HR PRN (Reason: Anxiety) Qty: 30 0RF oxycodone 5 mg Tablet 5 mg PO Q3HR PRN (Reason: Pain, Moderate (4-6)) Qty: 60 0RF Rx Instructions: 1-2 tabs (5-10 mg) q 3 hrs PRN severe pain acetaminophen 325 mg Tablet 650 mg PO Q6HR PRN (Reason: fever or pain) Qty: 240 0RF docusate sodium 100 mg Capsule 100 mg PO BID PRN (Reason: constipation) Qty: 60 1RF Continued bupropion HCl 150 mg Tablet Sustained-Release 12 Hr 450 mg PO QAM carvedilol 12.5 mg Tablet 12.5 mg PO QAM Rx Instructions: must administer with a meal/food citalopram 40 mg Tablet 40 mg PO DAILY aspirin 81 mg Tablet,Delayed Release (Dr/Ec) 81 mg PO DAILY losartan 25 mg Tablet 25 mg PO DAILY amiodarone 100 mg Tablet 100 mg PO DAILY Zyrtec 10 mg Capsule 10 mg PO DAILY PRN (Reason: Allergies) apixaban 5 mg Tablet 5 mg PO QAM Follow up/Referrals: Taina Barahona PA-C [Primary Care Provider] - Wiley Pavon MD [Physician] - As previously scheduled (Follow up with Dr Pavon on 08/27/2022 @ 3:30 pm at [facility] in [place].) Diet/Activity/Treatments Diet: Diet as Tolerated Activity: Walk frequently! Cold/Heat Therapy: Ice to knee as needed for pain Skin/Wound/Dressing Care Report to your healthcare provider any signs of infection, such as:: chills, fever, night sweats, unusual drainage and unusual redness Dressing: May remove PRUDENCIO wrap and shower on 08/18/2022. Leave Aquacel dressing in place until follow up in office. No bathing or otherwise soaking incision. Special Rehabilitation Services Rehab type: Physical therapy and Occupational therapy Visit Report/Discharge Packet Instructions: DI for Knee Replacement, DI for Prescription Opioid Use Stand Alone Forms: Surgery Discharge Discharge Data Primary Care Provider: Taina Barahona
[2022-08-17 09:28] VITALS: BP 103/52; PULSE 62; RESP 18; O2SAT 90
[2022-08-17] MEDS: DOCUSATE 100 MG CAPSULE PO (10:03)
[2022-08-17] MEDS: buPROPion XL 150 MG TAB 450 MG PO (10:04)
[2022-08-17] MEDS: HYDROMORPHONE 2 MG TABLET PO ×2 (10:04→12:42)
[2022-08-17] MEDS: LOSARTAN 25 MG TABLET PO (10:04)
[2022-08-17] MEDS: CITALOPRAM 10 MG TABLET 40 MG PO (10:04)
[2022-08-17] MEDS: ASPIRIN EC 81 MG TABLET PO (10:05)
[2022-08-17] MEDS: APIXABAN 5 MG TABLET PO (10:05)
[2022-08-17] MEDS: carvediloL 12.5 MG TABLET PO (10:05)
[2022-08-17] MEDS: AMIODARONE 200 MG TABLET 100 MG PO (10:05)
[2022-08-17 11:15] VITALS: BP 114/54; PULSE 70; RESP 18; TEMP 36.1; O2SAT 97
--- NOTE | 2022-08-17 12:00 | PT.IPTN ---
Current Diagnoses Unilateral primary osteoarthritis, right knee (08/16/22) Presence of unspecified artificial knee joint (08/16/22) Surgery Performed Operation Date: 08/15/22 15:00 Actual Procedures p Total Knee Arthroplasty(Right) - Wiley Pavon MD Physical Therapy Treatment Note M2 PT-IP Current Condition Start: 08/16/22 13:21 Freq: NEEDED Status: Active Protocol: Document 08/16/22 10:35 AB (Rec: 08/16/22 13:35 AB [id number]) Physical Therapy Current Condition Current Condition Evaluation Date 08/16/22 Treatment Diagnosis s/p R TKA; difficulty in walking Onset Date 08/15/22 M3 PT-IP Subjective Start: 08/16/22 13:21 Freq: NEEDED Status: Active Protocol: Document 08/17/22 12:14 LR (Rec: 08/17/22 12:24 [facility] [id number]) Subjective Physical Therapy Visit Type Type Treatment Note Visit Start Time 11:00 Visit Stop Time 11:38 Total Visit Minutes 38 Number of SOLVENT RECOVERER Visits 0 Physical Therapy Visit Comments Patient Comments pt reports knee still painful Therapy Pain Assessment Pain When Pain Assessed During Mobility Pain Present Pain Present Pain Reported Location Right Knee Pain Management Techniques Apply Cold M4 PT-IP Mobility and Gait Start: 08/16/22 13:21 Freq: NEEDED Status: Active Protocol: Document 08/17/22 12:14 LR (Rec: 08/17/22 12:24 [facility] [id number]) PT-Bed Mobility Assessment Supine to Sit Supine to Sit Minimal Assistance,Head of Bed Elevated,Bedrails Scooting Scooting to Edge of Bed Minimal Assistance PT-Transfer Assessment Sit to and From Stand Sit to and from Stand Moderate Assistance,Use of Upper Extremities Equipment Transfer Assistive Device Gait Belt,Front Wheeled Walker Orthotic/Prosthetic Devices or Brace: No Transfers Transfer Destination Chair Transfer Technique Stand Step Pivot Transfer Ability Level of Assist Moderate Assistance,1 Person Assistance,Use of Upper Extremities Comments Mobility Comments supine to sit w/min A and min A to scoot to EOB. sit to stand w/mod A to FWW and pt transfered w/mod A w/FWW to chair. Unable to amb today and felt lightheaded after completed seated knee flex. BP 83/33 so reclined and leaned back. BP got up to 88/43 and O2 level 88% at highest. SOIL TECHNICIAN present in session and called RN to notify. Pt left w/call light in reach. PT-Balance Assessment Sitting Balance and Reactions Static Sitting Balance Ability Good Dynamic Sitting Balance Ability Fair Standing Balance and Reactions Static Standing Balance Ability Poor Dynamic Standing Balance Ability Poor Device Used FWW M5 PT-IP Objective Assessments Start: 08/16/22 13:21 Freq: NEEDED Status: Active Protocol: Document 08/17/22 12:14 [facility] (Rec: 08/17/22 12:24 [facility] [id number]) Gross Range of Motion Lower Extremity ROM Impairments Pt cont to lack knee ext and today probably close to 35 deg . Knee flex no greater than 80 deg sitting M6 PT-IP Treatment Start: 08/16/22 13:21 Freq: NEEDED Status: Active Protocol: Document 08/17/22 12:14 [facility] (Rec: 08/17/22 12:24 [facility] [id number]) Physical Therapy Treatment Exercises Exercises Ankle Pumps,Quad Sets,Heel Slides,Straight Leg Raises, Short Arc Quads,Passive Knee Extension Hang,Seated Knee Flexion/Extension M7 PT-IP Assessment and Plan Start: 08/16/22 13:21 Freq: NEEDED Status: Active Protocol: Document 08/17/22 12:14 [facility] (Rec: 08/17/22 12:24 [facility] [id number]) PT Summary Assessment and Plan Potential Rehabilitation Potential Fair Status of Condition at Evaluation Evolving Summary Impairments Pain,ROM,Strength,Balance, Coordination,Sensation,Tone, Cognition,Bed Mobility, Transfers,Gait,Activity Tolerance Progress Towards Goals Progressing Toward Goals Assessment Summary Pt did much better w/her mobility today and was able to do bed mobility and transfers w/less assistance today but did have low BP after activity today and RN notified by SOIL TECHNICIAN who came in at end of session to see vitals. Pt left with call light in reach and SOIL TECHNICIAN in room. Pt would benefti from rehab to improve strength. Goals Bed Mobility Goal Minimal Assistance Transfer Goal Minimal Assistance,Front Wheeled Walker Gait Goal Minimal Assistance,Front Wheel Walker Gait Distance 25 Other Goals improve bed mobility, transfers, ambulation 100 ft SBA using FWW Days to Meet Goals 10 Frequency of Treatment Frequency Of Treatment Twice a Day Treatment Plan Physical Therapy Treatment Plan Bed Mobility Training,Transfer Training,Gait Training, Therapeutic Exercise,Balance Retraining,Post Op Education, Discharge Planning,Hot or Cold Pack,Neuromuscular Re-ed, Coordination Retraining,Manual Therapy Weight Bearing Status Weight Bearing Status Weight Bear as Tolerated Allowed Weight Bearing Amount (enter % RLE WBAT or #) (%) Recommendations To Nursing Amount of Assist Needed 1 Person Assist,2 Person Assist Discharge Recommendations PT Discharge Recommendations SNF Rehab Transportation Needs at Discharge Wheelchair/Cabulance
[2022-08-17] MEDS: LORazepam 0.5 MG TABLET PO (12:28)
--- NOTE | 2022-08-17 15:19 | CM.DPNOTE ---
Addendum entered by TARUN Alvarez 08/18/22 15:49: ADD: DC held yesterday d/t patient's somnolence and disorientation, narcan administered. Hospitalist consulted yesterday per Ortho PA and chart indicates patient cleared medically and ready for DC to SNF today. Discharged to [facility] today; p/u at 1500, JANES Roe called report. Med list mostly unchanged, carvedilol adjusted. Patient and dtr aware and agreeable to plan JW Original Note: DC Note Patient has been discharged to SNF today Per patient's request- placed call to [facility] in [facility] ([place] no beds today. Placed call to [facility], no bed until tomorrow. Updated patient w/above and she is agreeable to [facility] if bed available today. [facility] accepted patient for admission today and patient agreeable. Placed call to patient's dtr Mikala per patient's request and dtr very appreciative. IMM signed and scanned in by Vangie Cox today 08.17.22 Faxed completed and signed med list and PASRR to [facility]. COVID PCR updated. RN report to be called by JANES Potter Plan: DC to [facility] today via w/c (COVID waiver) EMEKA
[2022-08-17 15:25] LABS: COVID19 -Nasal RAPID Negative (Negative)
--- NOTE | 2022-08-17 15:44 | OT.IPNOTE ---
Pt looking to discharge to SNF today , therefore defer to skilled OT for Ot goals.
[2022-08-17] MEDS: NALOXONE 0.4 MG/ML VIAL 0.2 MG IV ×3 (16:38→17:46)
[2022-08-17] MEDS: SODIUM CHLORIDE 0.9% 500 ML 1000 ML IV (17:04)
[2022-08-17 18:17] LABS: pH ABG 7.43 (7.35-7.45)
[2022-08-17 18:18] LABS: Fractionated Inspired Oxygen 36; HCO3 ABG 19 mmol/L (22-26); Oxygen Saturation ABG 99 % (95-100); PCO2 ABG 28.4 mmHg (35-45); PO2 ABG 124 mmHg (80-100); TCO2 ABG 20 mmol/L (21-31)
[2022-08-17 18:19] VITALS: O2SAT 95
--- NOTE | 2022-08-17 19:01 | P.PN_ITS ---
Subjective Subjective Interval history: 72-year-old female with history of severe mitral regurgitation status post mitral clip in 2019, moderate to severe tricuspid regurgitation history of heart failure with reduced ejection fraction (with improved ejection fraction after mitral clip), paroxysmal atrial fibrillation on carvedilol and amiodarone and anticoagulated with Eliquis, known patent foramen ovale, hypertension, and known junctional rhythm/junctional tachycardia per event monitor in 2020 as well as a history of rheumatoid arthritis who is presently hospital day 2. On postoperative day 1 from a an elective right knee replacement. Patient was set to discharge earlier today, but developed some hypotension and decreased level of alertness and her discharge was held. IV fluid bolus was ordered and an EKG was done as she was noted to become bradycardic and hypotensive. She did receive a single dose of Narcan 0.4 mg IV at approximately 4:45 p.m.. ICU nurse brought the EKG to me for review at ap proximately 5:40 p.m.. It revealed a junctional rhythm with bradycardia with a rate in the low 40s. I presented to bedside to assess the patient. She was noted to be obtunded with sonorous respirations. She was difficult to arouse. IV fluids were initially infused to a total of approximately 300 cc. Blood pressure was 74 systolic. Exam Vital Signs (past 8 hours): - 08/17/22 11:15 08/17/22 18:19 Temperature 97.0 F L Pulse Rate 70 Respiratory Rate 18 Blood Pressure 114/54 L Pulse Oximetry 97 95 Oxygen Flow Rate 2 1 Oxygen Delivery Method Room Air Oxygen Flow Rate 1 Narrative Exam Narrative: GEN: Obtunded middle-aged female, sonorous respiration HEENT:NC, Face symmetric CHEST: Respiratory excursions symmetric, coarse but clear bilaterally CV: Bradycardic with regular rhythm ABD: Soft, NT/ND, BT present in all 4 quadrants, no organomegaly or masses EXTR: warm, well perfused, no C/C/E SKIN: warm and dry, no rash NEURO: Obtunded Objective Labs Result Diagrams: 08/16/22 04:02 Labs: Laboratory Results - last 24 hr 08/17/22 08/17/22 13:37 18:06 ABG pH 7.43 ABG pCO2 28.4 L ABG pO2 124 H ABG HCO3 19 L ABG Total CO2 20 L ABG O2 Saturation 99 ABG Base Excess -6.0 L FiO2 36 SARS-CoV-2 (PCR) Negative PFSH Medical History (Updated 08/09/22 @ 13:35 by Vangie Villarreal RN) Bilateral cataracts Chronic systolic heart failure Depression History of cardioversion (06/09/19) HTN (hypertension) Junctional rhythm Junctional tachycardia Moderate tricuspid regurgitation Osteoarthritis Paroxysmal A-fib (2018) PFO (patent foramen ovale) Rheumatoid arthritis Seasonal allergies Severe mitral regurgitation Tibial plateau fracture, right (06/2020) Tinnitus Surgical History (Updated 08/17/22 @ 07:13 by Opal Zamudio PA-C) History of cardiac cath (07/03/19) History of surgical procedure (08/05/19) Hx of arthroscopy of right knee Hx of section Hx of sinus surgery Social History household members: none Smoking Status: Former smoker alcohol intake: current Assessment & Plan Assessment & Plan narrative: 1. Junctional bradycardia 2. Hypotension 3. Acute metabolic encephalopathy Patient was given an additional dose of IV Narcan 0.4 mg. Patient aroused and became quite fidgety but much more responsive. IV fluid bolus was ordered to continue wide open to a total of 1 L. blood pressure subsequently improved up to the mid 80s systolic. ABG was ordered due to daughter's report of possible underlying undiagnosed sleep apnea. There is no evidence of CO2 retention. Patient has received a total of 60 mg of oxycodone since the evening of August 15 as well as 3.3 mg of IV Dilaudid. Suspect she developed some stacking of the doses related to her older age and slower metabolism. She did respond well to Narcan. Will discontinue opiates for now. Will add scheduled Tylenol t.i.d.. Given her junctional bradycardia, will plan to hold her carvedilol this evening and place holding parameters on it as well. Time Spent With Patient Critical Care time: I spent a total of [] minutes of critical care time on this patient's care today; this time is exclusive of procedural time.
[2022-08-17 20:00] VITALS: BP 129/80; PULSE 61; RESP 19; TEMP 36.5; O2SAT 94
--- NOTE | 2022-08-17 20:07 | CM.MNRNOTE ---
Pt is A&OX3, this a.m. VSS, afebrile on RA. She is received initially resting in bed, and although asking for pain medications had drifted back to sleep. After patient is awakened for breakfast she is more alert and c/o increasing pain to 9/10 pain and higher. She reports pain medication is not controlling her pain well and is tearful. PA notified as patient not due for another prn dose of oxycodone or hydromorphone, and instructed to administer ativan prn,0.5mg po. Patient's daughter arrived and patient states that her pain is uncontrolled and not being taken seriously. RN informed daughter and patient that we will have to wait at least 30 min for medications to take effect. Shortly after patient is able to rest and takes a nap. Patient moaning intermittently but appears to have pain controlled. At 1430 patient is very somnolent and attempted to arouse for transport to [facility], upon moving patient she is unable to keep her eyes open. VSS, afebrile and RR 18 however patient intermittently snoring. PA notified and arrived to bedside. Pt is very diaphorectic and assisted back to bed. HR 40's , and administered prn Narcan. Instructed to call Ortho MD afterwards for changes in VS. MD Pavon notified for a drop in SBP to 60's this afternoon and per orders administered 500 CC NS Bolus IV. vp software and hospitalist at bedside, administered an additional 0.4mg Narcan IV, obtained EKG and ABG's. Per MD Pavon no narcotics to be given until patient is fully alert. The hospitalist notified MD Pavon of assessment, currently BP 120's/80's , HR 60's 02 96% afebrile RR 18 and patient is being monitored on telemetry.
[2022-08-17 20:31] VITALS: PULSE 61; RESP 16; O2SAT 94
[2022-08-18] VITALS: BP 147/78; PULSE 62; RESP 18; TEMP 36.3; O2SAT 98
[2022-08-18] MEDS: ACETAMINOPHEN 325 MG TABLET 975 MG PO ×2 (01:04→12:24)
[2022-08-18 04:00] VITALS: BP 126/55; PULSE 69; RESP 17; TEMP 36.7; O2SAT 99
--- NOTE | 2022-08-18 06:26 | PC.NURSE ---
Inclinometer Tester Note-Patient slept throughout the night, rouses to stimuli, but remained confused to place and date. VSS, SpO2 >94% on 2L NC, SB/SR, BBB on telemetry, few episodes of junctional rhythm noted. 2 person assist to BSC. Tylenol given for right knee pain.
[2022-08-18 08:17] VITALS: BP 115/93; PULSE 65; RESP 16; TEMP 36.6; O2SAT 98
[2022-08-18 08:45] VITALS: BP 115/93; PULSE 65
[2022-08-18] MEDS: buPROPion XL 150 MG TAB 450 MG PO (08:45)
[2022-08-18] MEDS: LOSARTAN 25 MG TABLET PO (08:45)
[2022-08-18] MEDS: DOCUSATE 100 MG CAPSULE PO (08:45)
[2022-08-18] MEDS: ASPIRIN EC 81 MG TABLET PO (08:45)
[2022-08-18] MEDS: AMIODARONE 200 MG TABLET 100 MG PO (08:46)
[2022-08-18] MEDS: CITALOPRAM 10 MG TABLET 40 MG PO (08:46)
[2022-08-18 08:47] VITALS: BP 115/93; PULSE 65
[2022-08-18] MEDS: APIXABAN 5 MG TABLET PO (08:47)
[2022-08-18] MEDS: carvediloL 12.5 MG TABLET PO (08:47)
--- NOTE | 2022-08-18 08:51 | PM.PNPO.1 ---
Subjective Subjective Date Patient Seen: 08/18/22 Time Patient Seen: 08:51 Interval history: Received a call yesterday around 1600 from pts RN stating that pt was to d/c to SNF but that pt was unarousable but w/ stable vital signs after receiving PO narcotics and lorazepam. SNF d/c was held for overnight monitoring. She was given narcan and the hospitalist service was consulted. Holding parameters were put on her carvedilol: hold for HR < 60 or SBP < 110. This morning, pt has some confusion about the day of her surgery but is easily reoriented. She remembers who I am and remembers having spoken with me. She says she feels like she's slept for 10 hours. No focal deficits. Exam Vital Signs (past 8 hours): - 08/18/22 04:00 08/18/22 08:17 08/18/22 08:45 Temperature 98.1 F 98 F Pulse Rate 69 65 65 Respiratory Rate 17 16 Blood Pressure 126/55 L 115/93 H 115/93 H Pulse Oximetry 99 98 Oxygen Flow Rate 1 1 08/18/22 08:47 Temperature Pulse Rate 65 Respiratory Rate Blood Pressure 115/93 H Pulse Oximetry Oxygen Flow Rate Fraction of Inspired Oxygen 24 SaO2/FiO2 Ratio 391 Oxygen Delivery Method Nasal Cannula Oxygen Flow Rate 1 Narrative Exam Narrative: 5/5 strength in hip flexors, quadriceps, hamstrings, DF, PF, EHL; sensation to light touch intact throughout RLE. Calf soft, compressible, nontender and without palpable cords or masses. Aquacel dressing CDI. Objective Labs Result Diagrams: 08/16/22 04:02 Labs: Laboratory Results - last 24 hr 08/17/22 08/17/22 13:37 18:06 ABG pH 7.43 ABG pCO2 28.4 L ABG pO2 124 H ABG HCO3 19 L ABG Total CO2 20 L ABG O2 Saturation 99 ABG Base Excess -6.0 L FiO2 36 SARS-CoV-2 (PCR) Negative [facility] Medical History (Updated 08/09/22 @ 13:35 by Vangie Villarreal RN) Bilateral cataracts Chronic systolic heart failure Depression History of cardioversion (06/09/19) HTN (hypertension) Junctional rhythm Junctional tachycardia Moderate tricuspid regurgitation Osteoarthritis Paroxysmal A-fib (2019) PFO (patent foramen ovale) Rheumatoid arthritis Seasonal allergies Severe mitral regurgitation Tibial plateau fracture, right (06/2020) Tinnitus Surgical History (Updated 08/17/22 @ 07:13 by Opal Zamudio PA-C) History of cardiac cath (07/03/19) History of surgical procedure (08/05/19) Hx of arthroscopy of right knee Hx of section Hx of sinus surgery Social History household members: none Smoking Status: Former smoker alcohol intake: current Assessment & Plan Post-op Assessment and plan (1) Total knee replacement status: Assessment and Plan narrative: Spoke to hospitalist who feels pt is stable for discharge to SNF today. Continue hold parameters for carvedilol on discharge: do not give if HR < 60 or SBP < 110. Continue apixaban per home dosing and ASA 81 mg PO daily for VTE prophylaxis. Minimize narcotics and benzodiazepines. F/u in office as scheduled in 2 weeks. Postoperative Procedures: Procedures Operation Date: 08/15/22 15:00 Actual Procedure Side Surgeon p Total Knee Arthroplasty Right Wiley Pavon MD Postoperative day: 3
--- NOTE | 2022-08-18 11:11 | PT.IPTN ---
Current Diagnoses Unilateral primary osteoarthritis, right knee (08/16/22) Presence of unspecified artificial knee joint (08/16/22) Surgery Performed Operation Date: 08/15/22 15:00 Actual Procedures p Total Knee Arthroplasty(Right) - Wiley Pavon MD Physical Therapy Treatment Note M2 PT-IP Current Condition Start: 08/16/22 13:21 Freq: NEEDED Status: Active Protocol: Document 08/16/22 10:35 AB (Rec: 08/16/22 13:35 AB [id number]) Physical Therapy Current Condition Current Condition Evaluation Date 08/16/22 Treatment Diagnosis s/p R TKA; difficulty in walking Onset Date 08/15/22 M3 PT-IP Subjective Start: 08/16/22 13:21 Freq: NEEDED Status: Active Protocol: Document 08/18/22 11:01 [facility] (Rec: 08/18/22 11:11 [facility] [id number]) Subjective Physical Therapy Visit Type Type Treatment Note Visit Start Time 09:45 Visit Stop Time 10:19 Total Visit Minutes 36 Number of DETECTIVE PRECINCT Visits 1 Physical Therapy Visit Comments Patient Comments pt reports knee still painful Therapy Pain Assessment Pain When Pain Assessed During Mobility Pain Present Pain Present Pain Reported Location Right Knee Pain Management Techniques Apply Cold,Elevation, Modification of Treatment,Re- positioning,Timing of Activity with Medications M4 PT-IP Mobility and Gait Start: 08/16/22 13:21 Freq: NEEDED Status: Active Protocol: Document 08/18/22 11:01 [facility] (Rec: 08/18/22 11:11 [facility] [id number]) PT-Bed Mobility Assessment Supine to Sit Supine to Sit Minimal Assistance,Head of Bed Elevated,Bedrails Scooting Scooting to Edge of Bed Minimal Assistance PT-Transfer Assessment Sit to and From Stand Sit to and from Stand Minimal Assistance,Use of Upper Extremities Equipment Transfer Assistive Device Gait Belt,Front Wheeled Walker Orthotic/Prosthetic Devices or Brace: No Comments Mobility Comments Pt lying in bed reclined.With HOB elevated pr able to swing LEs off side of bed with very minimal assist with RLE. Pt Daquan mainly with cueing to scoot to side of bed. Again, pt requiring Daquan mainly with cues to complete sit>stand. She needed assist for hand placement. Pt then sat back on edge of bed without using UEs to lower herself down and did not land softly. Therapist positioned chair next to bed and pt stood again this time properly placing her hands on the bed and FWW which was braced by therapist. Pt then asked to take small steps to chair while keeping heel of RLE on floor. Pt able to complete several shuffling steps but unable to put full wieght on RLE. Pt used arm rests to lower self onto chair with better control. Pt was moved to other side of room in the chair. Pt instructed in seated exersises then left in the room with ice packs on knee and all needs within reach. Gait Assessment Gait Gait Assistance Required: Minimum Assistance,1 Person Assist Distance (Feet) 2 Able to Maintain Weight Bearing Status Yes During Gait Assistive Devices Assistive Device Front Wheeled Walker Gait Deviations General Gait Pattern Festinating Factors Limiting Gait Function Factors Limiting Gait Function Decreased Activity Tolerance, Decreased Strength, Incoordination,Pain,Poor Safety Awareness Comments Gait Comments see mobility PT-Balance Assessment Sitting Balance and Reactions Static Sitting Balance Ability Good Dynamic Sitting Balance Ability Fair Standing Balance and Reactions Static Standing Balance Ability Poor Dynamic Standing Balance Ability Poor Device Used FWW Comments Other Balance Tests/Deviations/Treatment Pt very anxious about : experiencing pain M5 PT-IP Objective Assessments Start: 08/16/22 13:21 Freq: NEEDED Status: Active Protocol: Document 08/17/22 12:14 [facility] (Rec: 08/17/22 12:24 [facility] [id number]) Gross Range of Motion Lower Extremity ROM Impairments Pt cont to lack knee ext and today probably close to 35 deg . Knee flex no greater than 80 deg sitting M6 PT-IP Treatment Start: 08/16/22 13:21 Freq: NEEDED Status: Active Protocol: Document 08/18/22 11:01 [facility] (Rec: 08/18/22 11:11 [id number]) Physical Therapy Treatment Exercises Exercises Ankle Pumps,Quad Sets,Straight Leg Raises,Short Arc Quads, Passive Knee Extension Hang, Seated Knee Flexion/Extension Education Education Provided Weight Bearing Status,Safety M7 PT-IP Assessment and Plan Start: 08/16/22 13:21 Freq: NEEDED Status: Active Protocol: Document 08/18/22 11:01 [facility] (Rec: 08/18/22 11:11 [facility] [id number]) PT Summary Assessment and Plan Potential Rehabilitation Potential Fair Status of Condition at Evaluation Evolving Summary Impairments Pain,ROM,Strength,Balance, Coordination,Sensation,Tone, Cognition,Bed Mobility, Transfers,Gait,Activity Tolerance Progress Towards Goals Progressing Toward Goals Assessment Summary Pt requires much cueing and reassurance but moving with less need for assistance. She is unable to perform the exercises without assistance and hasa tendancy to wiggle her legs rather than activate the muscles. She is very anxious about pain however did not complain much about it during mobility. She will require SNF for improving mobility, increasing strength, and progressing gait. Goals Bed Mobility Goal Minimal Assistance Transfer Goal Minimal Assistance,Front Wheeled Walker Gait Goal Minimal Assistance,Front Wheel Walker Gait Distance 25 Other Goals improve bed mobility, transfers, ambulation 100 ft SBA using FWW Days to Meet Goals 10 Frequency of Treatment Frequency Of Treatment Twice a Day Treatment Plan Physical Therapy Treatment Plan Bed Mobility Training,Transfer Training,Gait Training, Therapeutic Exercise,Balance Retraining,Post Op Education, Discharge Planning,Hot or Cold Pack,Neuromuscular Re-ed, Coordination Retraining,Manual Therapy Weight Bearing Status Weight Bearing Status Weight Bear as Tolerated Allowed Weight Bearing Amount (enter % RLE WBAT or #) (%) Recommendations To Nursing Amount of Assist Needed 1 Person Assist Discharge Recommendations PT Discharge Recommendations SNF Rehab Transportation Needs at Discharge Wheelchair/Cabulance
[2022-08-18 12:25] VITALS: BP 130/80; PULSE 68; RESP 17; TEMP 36.6; O2SAT 98
--- NOTE | 2022-08-18 15:24 | PC.NURSE ---
Pt woke initially confused and labile, following some commands but not able to focus or understand what was going on. Through the course of thr morning Pt cleared, sats improved changed from 2 ltrs to RA. Pt up to chair with PT. taking bfast. Pt up for BSC. Also using Purewick. Pt readied for d/c to [facility] after nap. Pt readied , report given and Pt picked up by [facility] escort.
== END 2022-08-18 15:18 | DRG 469 ==
LOC: OR 17:39 → AC 17:39
PROVIDERS: Family Medicine; Physician Assistant; Admitting Provider Orthopaedic Surgery; PCP Physician Assistant; Referring Provider Orthopaedic Surgery; Visit Provider Orthopaedic Surgery
PROC: 0SRC0JZ Replacement of Right Knee Joint with Synthetic Substitute, Open Approach (ICD-10-PCS; CPT 27447; principal; 2022-08-15 15:00)
DX: M17.11 Unilateral primary osteoarthritis, right knee (principal); G93.41 Metabolic encephalopathy; G89.18 Other acute postprocedural pain; F32.A Depression, unspecified; I10 Essential (primary) hypertension; I48.91 Unspecified atrial fibrillation; F41.9 Anxiety disorder, unspecified; R00.1 Bradycardia, unspecified; I95.9 Hypotension, unspecified; Z79.01 Long term (current) use of anticoagulants; Z20.822 Contact with and (suspected) exposure to COVID-19; Z87.891 Personal history of nicotine dependence
CPT/HCPCS: 36415; 36600; 73560; 82805; 85014; 85018; 87635; 93005; 94760; 94762; 97110; 97162; 97530; C1776; C9803; C1713; C9290; J0690; J1100; J1170; J2250; J2270; J2310; J2405; J2704; J3010

== ENCOUNTER → 2022-09-05 13:25 | Outpatient (CLI) | payer MEDICARE, MEDICAID, SELFPAY ==
[2022-08-15 17:57] VITALS: BMI 24.6
--- NOTE | 2022-09-05 | DI.RAD.S_ITS ---
PROCEDURE: XR LUMBAR SPINE 2-3V INDICATIONS: BACK PAIN TECHNIQUE: 3 views of the lumbar spine were acquired. COMPARISON: [facility], , SPINE LUMB 2 OR 3VW, 01/30/2022, 13:36. FINDINGS: Bones: 5 [id number] vertebrae are present. Mild scoliosis. Moderate degenerative changes. Multilevel loss of disc space height. No vertebral body compression fractures. No suspicious bony lesions. Soft tissues: Overlying bowel gas pattern is normal. No suspicious soft tissue calcifications. Arterial vascular calcifications. IMPRESSION: Moderate DDD and degenerative change in the lumbar spine. Dictated by: Colt Desai M.D. on 09/05/2022 at 18:05 Approved by: Colt Desai M.D. on 09/05/2022 at 18:07
--- NOTE | 2022-09-05 | DI.RAD.S_ITS ---
PROCEDURE: XR KNEE RT 3V INDICATIONS: Pain in right knee TECHNIQUE: 3 views of the knee were acquired. COMPARISON: [facility], , XR KNEE RT 1TO2V, 08/15/2022, 17:00. FINDINGS: Bones: Right knee total arthroplasty. No periprosthetic lucency to suggest loosening or infection. No unexpected fractures or dislocations. No suspicious bony lesions. Soft tissues: Small joint effusion. No suspicious soft tissue calcifications. IMPRESSION: Expected appearance of the right knee arthroplasty. Dictated by: Colt Desai M.D. on 09/05/2022 at 22:00 Approved by: Colt Desai M.D. on 09/05/2022 at 22:01
== END ==
PROVIDERS: PCP Physician Assistant; Referring Provider Nurse Practitioner Family; Visit Provider Nurse Practitioner Family
DX: M47.816 Spondylosis without myelopathy or radiculopathy, lumbar region (principal); M25.461 Effusion, right knee; M25.561 Pain in right knee; M51.36 Other intervertebral disc degeneration, lumbar region; M54.9 Dorsalgia, unspecified; Z96.651 Presence of right artificial knee joint
CPT/HCPCS: 72100; 73562

== ENCOUNTER 2022-09-09 09:08 | Emergency (ER) | payer MEDICARE, MEDICAID, SELFPAY ==
[2022-08-15 17:57] VITALS: BMI 24.6
[2022-09-09] VITALS (10 sets, daily range): BP systolic 112–158; BP diastolic 56–70; PULSE 57–74; RESP 12–21; TEMP 37.1; O2SAT 91–98
--- NOTE | 2022-09-09 09:17 | DI.CT.S_ITS ---
PROCEDURE: CT PEL WO CON INDICATIONS: fall, sacral/coccyx pain TECHNIQUE: Noncontrast 3 mm axial sections acquired through the bony pelvis, with coronal and sagittal reformatting. COMPARISON: None. FINDINGS: Image quality: Excellent. Bones: Normal mineralization. No visible fractures. Normal bone alignment. Mild degeneration symmetrically in both femoroacetabular joints and in the visible lower lumbar disc spaces. Soft tissues: There is patchy ill-defined high-density soft tissue thickening in the medial inferior gluteal regions bilaterally, right greater than left suggestive of contusion and small hematomas. No defined intramuscular fluid collections. There are no intrapelvic fluid collections or hematomas. Visible bowel loops demonstrate moderate sigmoid diverticulosis. Age-appropriate reproductive organs. Normal, intact urinary bladder. No free pelvic fluid. Neurovascular bundles are symmetric. No suspicious mass. IMPRESSION: 1. No pelvic fractures. 2. Inferomedial bilateral gluteal soft tissue contusions, right greater than left. 3. Incidental note of sigmoid diverticulosis. Dictated by: Aleshia Castelan M.D. on 09/09/2022 at 8:57 Approved by: Aleshia Castelan M.D. on 09/09/2022 at 9:06
--- NOTE | 2022-09-09 09:18 | ED_ITS ---
HPI - Fall General Chief Complaint: Fall Stated Complaint: GLF Time Seen by Provider: 09/09/22 09:11 Source: patient Mode of arrival: EMS Limitations: no limitations History of Present Illness HPI Narrative: This is a 72-year-old female anticoagulated on Eliquis for paroxysmal atrial fibrillation, history of hypertension, CHF, prior mitral valve insufficiency with clip, chronic kidney disease stage 4 who is currently rehab after a right knee surgery. Patient states about 4:00 a.m. this morning she was transferring herself from her bed to wheelchair. She states wheelchair break does not work very well and the wheelchair slid backwards and she fell to the floor on her buttocks. She was alone, she states she did not tell staff until this morning. She has had her oral pain medications at the facility including oxycodone and oral Dilaudid which she is been receiving regularly scheduled and she states was not very helpful. She complains of pain in her tailbone region. She denies pain elsewhere. Painful her lay on her buttocks. She denies any injury or hitting her head, no neck or back pain. No chest pain shortness of breath. No nausea or vomiting. No loss of bowel or bladder control. No numbness tingling or weakness in her extremities she denies pain in her legs. She has a little bit discomfort she says in her left shoulder but states moving fine she does not think it is broken. Patient states she is had a prior mitral clip and 1 C- section as well as right knee surgery. She denies allergies to medications. Former smoker, occasional alcohol, none today. No illicit. She comes from 1 of the rehab facilities today. Related Data Home Medications Medication Instructions Recorded Confirmed amiodarone 100 mg tablet 100 mg PO DAILY 08/09/22 08/15/22 apixaban 5 mg tablet 5 mg PO QAM 08/09/22 08/15/22 aspirin 81 mg tablet,delayed 81 mg PO DAILY 08/09/22 08/15/22 release bupropion HCl 150 mg tablet,12 hr 450 mg PO QAM 08/09/22 08/15/22 sustained-release carvedilol 12.5 mg tablet 12.5 mg PO QAM 08/09/22 08/15/22 cetirizine 10 mg capsule (Zyrtec) 10 mg PO DAILY PRN Allergies 08/09/22 08/15/22 citalopram 40 mg tablet 40 mg PO DAILY 08/09/22 08/15/22 losartan 25 mg tablet 25 mg PO DAILY 08/09/22 08/15/22 Previous Rx's Medication Instructions Recorded acetaminophen 325 mg tablet 650 mg PO Q6HR PRN fever or pain 08/17/22 #240 tabs docusate sodium 100 mg capsule 100 mg PO BID PRN constipation #60 08/17/22 caps hydromorphone 2 mg tablet 2 mg PO Q4-6H PRN Pain, Severe 08/17/22 (7-10) #20 tabs lorazepam 0.5 mg tablet 0.5 mg PO Q6HR PRN Anxiety #30 tabs 08/17/22 oxycodone 5 mg tablet 5 mg PO Q3HR PRN Pain, Moderate 08/17/22 (4-6) #60 tabs Allergies Allergy/AdvReac Type Severity Reaction Status Date / Time No Known Drug Allergies Allergy Verified 08/15/22 13:39 Review of Systems Review of Systems ROS Unobtainable: All systems reviewed & are unremarkable except as noted in HPI and below Patient History Medical History Bilateral cataracts Chronic systolic heart failure Depression History of cardioversion (06/09/19) HTN (hypertension) Junctional rhythm Junctional tachycardia Moderate tricuspid regurgitation Osteoarthritis Paroxysmal A-fib (2018) PFO (patent foramen ovale) Rheumatoid arthritis Seasonal allergies Severe mitral regurgitation Tibial plateau fracture, right (06/2020) Tinnitus Surgical History History of cardiac cath (07/03/19) History of surgical procedure (08/05/19) Hx of arthroscopy of right knee Hx of section Hx of sinus surgery Social History household members: none Smoking Status: Former smoker alcohol intake: current Smoking Status: Former smoker alcohol intake frequency: a few times a week Substance Use Type: does not use Exam Narrative Exam Narrative: GEN: Patient appears in moderate distress. HEAD: No evidence of trauma, no raccoon/Caceres sign. NECK: Nontender, painless range of motion, trachea midline Negative Nexus criteria, there is no midline line tenderness, distracting injury, altered mental status, neuro deficit, recent EtOH. EYES: PERRLA, EOMI ENT: External inspection normal, trachea is midline, Nares are clear, no septal hematoma, no dental or oral injury, airway is normal and with normal occlusion, No bony tenderness RESP: Chest is nontender and has symmetric movement, no ecchymosis, breath sounds are normal no crackles, wheezes or rales CVS: Heart sounds are normal, no murmur noted, No JVD. ABG/GI: Nontender, soft, normal bowel sounds, no distention, no organomegaly, pelvic rock is negative NEURO: Oriented AOx3, neuro is grossly intact, sensation and motor is normal all 4 extremities moving, cranial nerves II through XII are intact, GCS is 15 PSYCH: Normal mood and affect SKIN: Intact, warm and dry, no crepitus and without decubitus BACK: No CVA tenderness, no vertebral tenderness, no step-off's, no crepitus, patient has tenderness over the left SI joint and coccyx region. EXT: Atraumatic, hips are nontender, no pedal edema, normal color and temperature, normal range of motion of extremities with normal tendon exam, 2+ pulses in all four extremities Initial Vital Signs Initial Vital Signs: Vital Signs Temperature 98.7 F 09/09/22 09:31 Pulse Rate 59 L 09/09/22 09:31 Respiratory Rate 18 09/09/22 09:31 Blood Pressure 145/64 H 09/09/22 09:31 Pulse Oximetry 95 09/09/22 09:31 Oxygen Delivery Method 09/09/22 09:31 Course Orders Ordered: ED Orders 09/09/22 09:27 CBC Auto Diff [Complete Blood Count AUTO DIFF] Stat CMP [Comprehensive Metabolic Panel] Stat Lipase Stat PTT [Partial Thromboplastin Time] Stat Prothrombin Time INR Stat 09/09/22 09:50 XR knee RT 3V Stat 09/09/22 09:51 PTT [Partial Thromboplastin Time] Stat Discontinued Medications Hydromorphone HCl (Hydromorphone 1 Mg Inj) 1 mg IV NOW ONE Stop: 09/09/22 09:24 Last Admin: 09/09/22 10:03 Dose: 1 mg Documented By: ROMI Vital Signs Vital signs: Vital Signs - 8 hr 09/09/22 10:30 09/09/22 10:31 09/09/22 10:31 Pulse Rate 58 L 58 L Respiratory Rate 17 12 Blood Pressure 112/56 L Pulse Oximetry 98 96 09/09/22 11:00 09/09/22 11:00 09/09/22 11:30 Pulse Rate 57 L Respiratory Rate 18 Blood Pressure 113/70 126/59 L Pulse Oximetry 98 09/09/22 11:30 09/09/22 12:00 09/09/22 12:01 Pulse Rate 58 L 74 Respiratory Rate 18 Blood Pressure 158/65 H Pulse Oximetry 98 94 MDM - Fall Lab Data Result diagrams: 09/09/22 09:27 09/09/22 09:27 Labs: Lab Results 09/09/22 09/09/22 09/09/22 Range/Units 09:27 09:27 09:27 WBC 9.0 (4.5-11.0) X10^3/uL RBC 2.78 L (4.0-5.2) X10^6/uL Hgb 8.1 L (12.0-16.0) g/dL Hct 25.3 L (36-46) % MCV 91.1 (80-100) fL MCH 29.2 (26-34) PG MCHC 32.1 (30-36) % RDW 19.4 H (11.6-14.8) % Plt Count 461 H (150-400) X10^3/uL Neut % (Auto) 74.5 (50-75) % Lymph % (Auto) 10.0 L (25-40) % [place] % (Auto) 9.7 (3-14) % Eos % (Auto) 4.7 H (2-4) % Baso % (Auto) 1.1 (0-2) % Neut # (Auto) 6700 (8301-9941) /uL Lymph # (Auto) 900 L (5590-9052) /uL [place] # (Auto) 900 (0-900) /uL Eos # (Auto) 400 (0-450) /uL Baso # (Auto) 100 (0-100) /uL PT 18.6 H (10.1-12.7) SECONDS INR 1.6 H (0.9-1.3) APTT 99 H* (26-36) SECONDS Sodium 138 (137-145) mmol/L Potassium 4.2 (3.4-5.1) mmol/L Chloride 102 (98-107) mmol/L Carbon Dioxide 28 (22-32) mmol/L BUN 14 (7-17) mg/dL Creatinine 0.86 (0.52-1.04) mg/dL Estimated GFR > 60 (>60) mL/min BUN/Creatinine Ratio 16.3 (6-22) Glucose 93 (80-110) mg/dL Calcium 8.4 (8.4-10.2) mg/dL Total Bilirubin 0.6 (0.2-1.3) mg/dL AST 19 (14-36) IU/L ALT 11 (<35) IU/L Alkaline Phosphatase 103 (38-126) U/L Total Protein 7.0 (6.3-8.2) g/dL Albumin 3.5 (3.5-5.0) g/dL Globulin 3.5 (1.7-4.1) g/dL Albumin/Globulin Ratio 1.0 (1.0-2.8) Lipase 52 (23-300) U/L 09/09/22 Range/Units 09:51 WBC (4.5-11.0) X10^3/uL RBC (4.0-5.2) X10^6/uL Hgb (12.0-16.0) g/dL Hct (36-46) % MCV (80-100) fL MCH (26-34) PG MCHC (30-36) % RDW (11.6-14.8) % Plt Count (150-400) X10^3/uL Neut % (Auto) (50-75) % Lymph % (Auto) (25-40) % [place] % (Auto) (3-14) % Eos % (Auto) (2-4) % Baso % (Auto) (0-2) % Neut # (Auto) (6697-8755) /uL Lymph # (Auto) (4832-9811) /uL [place] # (Auto) (0-900) /uL Eos # (Auto) (0-450) /uL Baso # (Auto) (0-100) /uL PT (10.1-12.7) SECONDS INR (0.9-1.3) APTT 94 H* (26-36) SECONDS Sodium (137-145) mmol/L Potassium (3.4-5.1) mmol/L Chloride (98-107) mmol/L Carbon Dioxide (22-32) mmol/L BUN (7-17) mg/dL Creatinine (0.52-1.04) mg/dL Estimated GFR (>60) mL/min BUN/Creatinine Ratio (6-22) Glucose (80-110) mg/dL Calcium (8.4-10.2) mg/dL Total Bilirubin (0.2-1.3) mg/dL AST (14-36) IU/L ALT (<35) IU/L Alkaline Phosphatase (38-126) U/L Total Protein (6.3-8.2) g/dL Albumin (3.5-5.0) g/dL Globulin (1.7-4.1) g/dL Albumin/Globulin Ratio (1.0-2.8) Lipase (23-300) U/L Imaging Data pelvic CT: Radiologist's Impression: Close Knee X-Ray (Signed) Aleshia Castelan - 09/09/[address] (Signed) Aleshia Castelan - 09/09/22 Lumbar Spine X-Ray (Signed) Call,Colt - 09/05/22 Knee X-Ray (Signed) Call,Colt - 09/05/22 Telemetry Strips 08/16/22 Knee X-Ray (Signed) Inocencio Jeornimo - 08/15/22 Outside EKG 08/10/22 Outside EKG 08/02/21 Launch?[place] [address] CT Scan Report Signed Patient: Kristina Hyatt MR#: [id number] : 1950 Acct:[id number] Age/Sex: 72 / F Date of Service: 09/09/22 Loc: ED Accession Number: [id number] ?? Procedure: CT pelvis wo con Ordering Provider: Miesha Mercado D.O. PROCEDURE:? CT PEL WO CON ? INDICATIONS:? fall, sacral/coccyx pain ? TECHNIQUE:? Noncontrast 3 mm axial sections acquired through the bony pelvis, with coronal and sagittal reformatting.? ? COMPARISON:? None. ? FINDINGS:? Image quality:? Excellent.? ? Bones:? Normal mineralization.? No visible fractures.? Normal bone alignment.? Mild degeneration symmetrically in both femoroacetabular joints and in the visible lower lumbar disc spaces. ? Soft tissues:? There is patchy ill-defined high-density soft tissue thickening in the medial inferior gluteal regions bilaterally, right greater than left suggestive of contusion and small hematomas.? No defined intramuscular fluid collections.? There are no intrapelvic fluid collections or hematomas.? Visible bowel loops demonstrate moderate sigmoid diverticulosis.? Age-appropriate reproductive organs.? Normal, intact urinary bladder.? No free pelvic fluid.? Neurovascular bundles are symmetric.? No suspicious mass. ? ? IMPRESSION:? ? 1. No pelvic fractures. ? 2. Inferomedial bilateral gluteal soft tissue contusions, right greater than left.? ? 3. Incidental note of sigmoid diverticulosis. ? Dictated by: Aleshia Castelan M.D. on 08/20 Extremity x-ray #1: Radiologist's Impression: Close Knee X-Ray (Signed) Flip,Aleshia - 09/09/[address] (Signed) Flip,Aleshia - 09/09/22 Lumbar Spine X-Ray (Signed) Call,Colt - 09/05/22 Knee X-Ray (Signed) Call,Colt - 09/05/22 Telemetry Strips 08/16/22 Knee X-Ray (Signed) Inocencio Jeronimo - 08/15/22 Outside EKG 08/10/22 Outside EKG 08/02/21 Launch?[place] [address] XRay Report Signed Patient: Kristina Hyatt MR#: [id number] : 1950 Acct:[id number] Age/Sex: 72 / F Date of Service: 09/09/22 Loc: ED Accession Number: [id number] ?? Procedure: XR knee RT 3V Ordering Provider: Miesha Mercado D.O. PROCEDURE:? XR KNEE RT 3V ? INDICATIONS:? r/o fx ? TECHNIQUE:? 3 views of the knee were acquired.? ? COMPARISON:? [facility], , XR KNEE RT 3V, 09/05/2022, 13:32. ? FINDINGS:? ? Bones:? Total knee arthroplasty components are present.? No new fractures are identified. ?No new areas of periprosthetic lucency.? Patellar alignment remains normal. ? Soft tissues:? Small joint effusion.? No suspicious soft tissue calcifications.? ? ? IMPRESSION:? ? 1. Small joint effusion, present previously on recent radiograph. ? 2. No new fracture or dislocation. ? 3. No change in appearance of total knee arthroplasty components.? ? ? Dictated by: Aleshia Castelan M.D. on 09/09/2022 at 9:16 ? ? Approved by: Aleshia Castelan M.D. on 09/09/2022 at 9:18?? MDM Narrative Medical decision making narrative: This is a 72-year-old female with complaint of ground level fall at about 4:00 a.m. this morning, patient denies hitting her head no neck or back pain but has pain on her buttocks states she was transferring herself and fell on her buttocks. Patient does not have any obvious bony injuries she is some mild bruising. CT pelvis was obtained, patient has some gluteal hematoma and co ntusion but no intra-abdominal pelvic changes. Patient's PTT is elevated maybe secondary to apixaban, he is anemic but appears stable, no significant electrolyte or other changes noted. Patient is otherwise medically stable. Discussed increasing her regular pain medication she had improvement with pain medicine here. Patient states she did hurt her knee from when she fell. She is been moving it she does not think it is broken, CT shows an effusion which appears stable and no other acute bony changes. Discharged back to her care facility. Discharge Plan Departure Patient Disposition: Home Clinical Impression: Traumatic hematoma of buttock, Right knee sprain, Fall with injury Instructions: How to Prevent Falls Activity Restrictions/Additional Instructions: Your imaging does not show any fracture brace to the pelvic bone, sacrum or coccyx, you do have some bruising and contusion/hematoma in the gluteal region or buttocks. It may be helpful to use a donut or rounded pillow under your buttocks when seated. You may continue your current home pain medications as needed, you can increase your Tylenol dose to a 1000 mg every 6 hours as needed. If needed you can increase your oxycodone to 10 mg every 3 hours instead of 5 mg every 3 hours. I do recommend that you take a stool softener such as Colace 1-2 times daily to make sure you do not become constipated. Return for fevers, worsening pain, new weakness numbness, loss of bowel or bladder control, no abdominal pain, vomiting, black or bloody stools, difficulty with urination or other new or concerning changes. Prescriptions: No Action bupropion HCl 150 mg Tablet Sustained-Release 12 Hr 450 mg PO QAM carvedilol 12.5 mg Tablet 12.5 mg PO QAM Rx Instructions: must administer with a meal/food citalopram 40 mg Tablet 40 mg PO DAILY aspirin 81 mg Tablet,Delayed Release (Dr/Ec) 81 mg PO DAILY losartan 25 mg Tablet 25 mg PO DAILY amiodarone 100 mg Tablet 100 mg PO DAILY Zyrtec 10 mg Capsule 10 mg PO DAILY PRN (Reason: Allergies) apixaban 5 mg Tablet 5 mg PO QAM acetaminophen 325 mg Tablet 650 mg PO Q6HR PRN (Reason: fever or pain) Qty: 240 0RF docusate sodium 100 mg Capsule 100 mg PO BID PRN (Reason: constipation) Qty: 60 1RF hydromorphone 2 mg Tablet 2 mg PO Q4-6H PRN (Reason: Pain, Severe (7-10)) Qty: 20 0RF lorazepam 0.5 mg Tablet 0.5 mg PO Q6HR PRN (Reason: Anxiety) Qty: 30 0RF oxycodone 5 mg Tablet 5 mg PO Q3HR PRN (Reason: Pain, Moderate (4-6)) Qty: 60 0RF Rx Instructions: 1-2 tabs (5-10 mg) q 3 hrs PRN severe pain Referrals: Taina Barahona PA-C [Primary Care Provider] - Stand Alone Forms: Patient Portal/API
[2022-09-09 09:34] LABS: Add Manual Diff / Slide Review NO; Basophils Absolute Auto 100 /uL (0-100); Basophils Percent Auto 1.1 % (0-2); Eosinophils Absolute Auto 400 /uL (0-450); Eosinophils Percent Auto 4.7 % (2-4); Hematocrit 25.3 % (36-46); Hemoglobin 8.1 g/dL (12.0-16.0); Lymphocytes Absolute Auto 900 /uL (1100-4500); Mean Corpuscular HGB Conc 32.1 % (30-36); Mean Corpuscular Hemoglobin 29.2 PG (26-34); Mean Corpuscular Volume 91.1 fL (80-100); Monocytes Absolute Auto 900 /uL (0-900); Monocytes Percent Auto 9.7 % (3-14); Neutrophils Absolute Auto 6700 /uL (1500-7000); Neutrophils Percent Auto 74.5 % (50-75); Platelet Count 461 X10^3/uL (150-400); Red Blood Cell Count 2.78 X10^6/uL (4.0-5.2); Red Cell Distribution Width 19.4 % (11.6-14.8)
[2022-09-09 09:40] LABS: INR 1.6 (0.9-1.3); Prothrombin Time 18.6 SECONDS (10.1-12.7)
[2022-09-09 09:44] LABS: Alanine Aminotransferase 11 IU/L (<35); Albumin 3.5 g/dL (3.5-5.0); Alkaline Phosphatase 103 U/L (38-126); Aspartate Aminotransferase 19 IU/L (14-36); BUN Creatinine Ratio 16.3 (6-22); Bilirubin Total 0.6 mg/dL (0.2-1.3); Blood Urea Nitrogen 14 mg/dL (7-17); Calcium 8.4 mg/dL (8.4-10.2); Carbon Dioxide 28 mmol/L (22-32); Chloride 102 mmol/L (98-107); Estimated Glomerular Filt Rate > 60 mL/min (>60); Globulin 3.5 g/dL (1.7-4.1); Glucose 93 mg/dL (80-110); HEMOLYSIS < 15 (0-50); Lipase 52 U/L (23-300); Potassium 4.2 mmol/L (3.4-5.1); Sodium 138 mmol/L (137-145)
--- NOTE | 2022-09-09 09:50 | DI.RAD.S_ITS ---
PROCEDURE: XR KNEE RT 3V INDICATIONS: r/o fx TECHNIQUE: 3 views of the knee were acquired. COMPARISON: [facility], , XR KNEE RT 3V, 09/05/2022, 13:32. FINDINGS: Bones: Total knee arthroplasty components are present. No new fractures are identified. No new areas of periprosthetic lucency. Patellar alignment remains normal. Soft tissues: Small joint effusion. No suspicious soft tissue calcifications. IMPRESSION: 1. Small joint effusion, present previously on recent radiograph. 2. No new fracture or dislocation. 3. No change in appearance of total knee arthroplasty components. Dictated by: Aleshia Castelan M.D. on 09/09/2022 at 9:16 Approved by: Aleshia Castelan M.D. on 09/09/2022 at 9:18
[2022-09-09 09:52] LABS: PTT Partial Thromboplastin Tim 99 SECONDS (26-36)
[2022-09-09] MEDS: HYDROMORPHONE 1 MG INJ IV (10:03)
[2022-09-09 10:43] LABS: PTT Partial Thromboplastin Tim 94 SECONDS (26-36)
--- NOTE | 2022-09-09 12:11 | PC.NURSE ---
Attempted to contact [facility] regarding [facility] transport for this patient. No one answered any extension. Unable to reach a live person. Left message on voicemail.
== END 2022-09-09 12:13 | disposition home or self-care (01) ==
PROVIDERS: Emergency Provider Emergency Medicine; PCP Physician Assistant
DX: S83.91XA Sprain of unspecified site of right knee, initial encounter (principal); S30.0XXA Contusion of lower back and pelvis, initial encounter; W05.0XXA Fall from non-moving wheelchair, initial encounter; Z79.01 Long term (current) use of anticoagulants
CPT/HCPCS: 36415; 72192; 73562; 80053; 83690; 85025; 85610; 85730; 96374; 99284; J1170

== ENCOUNTER → 2022-09-19 17:43 | Outpatient (ROUT) | payer MEDICARE, MEDICAID, SELFPAY ==
[2022-08-15 17:57] VITALS: BMI 24.6
[2022-09-19 17:51] LABS: Appearance Urine UA SL CLOUDY; Bilirubin Urine UA NEGATIVE (NEGATIVE); Color Urine UA YELLOW; Glucose Urine UA NEGATIVE (Negative); Ketones Urine UA NEGATIVE (NEGATIVE); Leukocyte Esterase Urine UA 1+ (NEGATIVE); Nitrite Urine UA NEGATIVE (Negative); Occult Blood Urine UA NEGATIVE (Negative); Protein Urine UA NEGATIVE (Negative); Urobilinogen Urine UA >=8.0 E.U./dL (0.2)
[2022-09-19 17:53] LABS: pH Urine UA 6.5 (4.5-8.0)
[2022-09-19 18:20] LABS: Bacteria Urine Many (>30); Culture Indicated Urine Specimen Cultured; RBC Urine None Seen (0-5/HPF); Squamous Epithelial Cell Urine 5-10 /HPF (0-5/HPF); Transitional Epi Cells Urine 0-1/HPF (0-5/HPF); WBC Urine 1-5/HPF (0-5/HPF)
== END ==
PROVIDERS: PCP Physician Assistant; Visit Provider Internal Medicine
DX: Z13.89 Encounter for screening for other disorder (principal)
CPT/HCPCS: 81001; 87077; 87086; 87186